=== PATIENT | male | born 1970 | race Caucasian/White ===

== ENCOUNTER 2017-11-06 10:28 | Day surgery (SDC) | payer BC ==
[2017-11-04 08:47] VITALS: BMI 31.0
--- NOTE | 2017-11-05 08:19 | History and Physical ---
History & Physical Date Nov 05, 2017. Chief Complaint Patient presents a 46-year-old white male with bilateral knee pain examination and MRI consistent for medial meniscus bilateral knees Spenard also conservative therapy presents today for a fluoroscopic evaluation History of Present Illness The patient is a 46 year old male with complaints of bilateral painful knees nonresponse to conservative therapy with bilateral meniscal tears via MRI Additional History Hepatic Disease: No Endocrine Disorder: No Kidney Disease: No Hypertension: No Heart Disease: No Bleeding Tendencies: Other: Patient has history of platelet storage pool disorder his family doctor is Dr. David Odell patient also has history of rays disease Allergies Coded Allergies: No Known Allergies (Unverified , 11/04/17) Home Medications Scheduled Cholecalciferol (Vitamin D3), 1 TAB PO DAILY Multivitamin (Multivitamin), 1 TAB PO DAILY Scheduled PRN Loratadine (Claritin), 10 MG PO DAILY PRN for PRN Ranitidine (Zantac), 150 MG PO BID PRN for Indigestion Physical Examination Skin: warm/dry, no rash Eyes: normal inspection, EOMI, sclerae normal ENT: normal ENT inspection, pharynx normal Head: normocephalic, atraumatic Neck: supple, no adenopathy, trachea midline Respiratory/Chest: lungs clear, normal breath sounds, no respiratory distress Cardiovascular: regular rate, rhythm, no edema, no murmur Abdomen / GI: normal bowel sounds, non tender Back: normal inspection Extremities: + pertinent finding (patient with history of bilateral knee pain medial joint line findings consistent with torn medial meniscus verified via MRI ) Neurologic/Psych: no motor/sensory deficits, alert, normal reflexes, oriented x 3 Diagnosis Patient presents with history of bilateral knee pain in the joint line pain tenderness exam suggestive of a torn medial meniscus bilaterally patient presents for bilateral knee arthroscopy Plan of Treatment Plans for bilateral knee arthroscopy postoperative pain management DVT prophylaxis antibiotics physical therapy is necessary
[~2017-11-06] VITALS: Ht 165.1 cm; Wt 92.0 kg
--- NOTE | 2017-11-06 10:01 | History & Physical Bridge Note ---
H&P Re-Evaluation Bridge Note: I have examined the patient, reviewed the History & Physical and in the interval since the performance of the History & Physical I have noted the following changes of clinical significance: No changes noted
[~2017-11-06 10:28] MED LIST: CEFAZOLIN 2000MG IV PUSH 15 ML IV SCH; CHOL1000 PO; CLR10 PO; LACTATED RINGER'S 1000ML 1,000 ML IV SCH; MULT-506 PO; PATIENT'S ALLERGY INFO NEEDS ENTERED SCH; RANI150T85 PO; [UNRECOGNIZED DRUG - REMARK] SCH
[2017-11-06] MEDS ORDERED: ONDANSETRON INJ 2 MG/ML 2 ML VIAL IV PRN ×2 (10:30→12:45)
[2017-11-06] MEDS ORDERED: FENTANYL CITRATE INJ 50 MCG/1 ML 2 ML VIAL IV PRN (10:30)
[2017-11-06] MEDS ORDERED: ATROPINE SULFATE 0.1 MG/ML 5ML SYR IV PRN (10:30)
[2017-11-06] MEDS ORDERED: EpHEDrine SULFATE INJ 50 MG/ML AMP IV PRN (10:30)
[2017-11-06] MEDS ORDERED: DEXAMETHASONE SOD INJ 4 MG/ML VIAL ONE (10:33)
[2017-11-06] MEDS ORDERED: PROPOFOL IV EMULSION 10 MG/ML 20 ML VIAL IV ONE (10:33)
[2017-11-06] MEDS ORDERED: MIDAZOLAM HCL 1 MG/ML 2ML VIAL ONE (10:33)
[2017-11-06] MEDS ORDERED: ONDANSETRON INJ 2 MG/ML 2 ML VIAL ONE (10:33)
[2017-11-06] MEDS ORDERED: LIDOCAINE HCL 2% 2 ML VIAL (20MG/ML) ONE (10:33)
[2017-11-06] MEDS ORDERED: FENTANYL CITRATE INJ 50 MCG/1 ML 2 ML VIAL ONE ×3 (10:33→12:54)
[2017-11-06 10:50] VITALS: BP 122/79; PULSE 51; TEMP 36.6; O2SAT 99; Ht 165.1 cm; Wt 92.0 kg
[2017-11-06] MEDS ORDERED: NURSING VERBAL MED ORDER ONE (11:00)
[2017-11-06] MEDS ORDERED: SODIUM CHLORIDE 0.9% IV SCH (11:15)
[2017-11-06] MEDS ORDERED: DESMOPRESSIN ACETATE IV SCH (11:15)
[2017-11-06] MEDS ORDERED: BUPIVACAINE/EPINEPHRINE 0.5% MPF 1:200,000 30 ML VIAL ONE (11:28)
[2017-11-06] MEDS ORDERED: SCOPOLAMINE 1.5 MG TDSY TD ONE (11:40)
[2017-11-06] MEDS ORDERED: SODIUM CHLORIDE 0.9% 1000ML 1,000 ML IV SCH (12:34)
--- NOTE | 2017-11-06 12:36 | Discharge Instructions ---
Discharge Instructions Date of Service Nov 06, 2017. Visit Reason for Visit: Bilateral Knee Medial Meniscus Tears Discharge Discharge Diagnosis / Problem: bilateral knee meniscal tears Discharge Goals Goal(s): Decrease discomfort, Improve function, Increase independence Activity Recommendations Activity Limitations: as noted below Weightbearing Status: Left weightbearing (as tolerated), Right weightbearing ( as tolerated) Anesthesia . Post Anesthesia Instructions: If you have had General Anesthesia or IV Sedation: * Do not drive today. * Resume driving when surgeon permits. * Do not make important decisions or sign legal documents today. * Call surgeon for: 1. Temperature elevations greater than 101 degrees F. 2. Uncontrollable pain. 3. Excessive bleeding. 4. Persistent nausea and vomiting. 5. Medication intolerance (nausea, vomiting or rash). * For nausea and vomiting use only clear liquids such as: tea, soda, bouillon until nausea subsides, then gradually increase diet as tolerated. * If you have any concerns or questions, call your surgeon's office. If physician is unavailable and it is an emergency, call 911 or go to the nearest emergency room. . Instructions / Follow-Up Instructions / Follow-Up ACTIVITY RECOMMENDATIONS: * You may walk on the leg with or without crutches as comfort permits. * Bending of the knee should start at once. * Do not shower for 48 hours following surgery. SPECIAL CARE INSTRUCTIONS: * You may cleanse the skin adjacent to the small wounds with soap and water at the time of the first dressing change. * The application of an ice bag to the front and sides of the knee will decrease swelling and discomfort for the first 48 hours. * The small incisions may be sore and develop bruising. This bruising does not require any special care. SPECIAL PRECAUTIONS: * If you experience unusual pain unrelieved by prescriptions, temperature elevation (100 degrees F. or above) or progressive swelling or bleeding, you should contact our office at for further evaluation. * You may have been prescribed pain medication. If you experience nausea and/or fine skin rash, discontinue this medication and contact our office at for an alternate medication. DRESSING: * Dressing should be comfortable and absorb any leakage of fluid and/or blood. * The dressing may become moist or bloodstained. * Dressing may be removed _24 hours_ after surgery and bandaids placed over the small surgical incisions. If can be removed sooner if it becomes very soiled or loose. * Bandaids may be used over next several days as needed and can be discontinued when there is not further drainage from the wounds. FOLLOW UP VISIT: If appointment is not already scheduled: Please call [facility] to make a follow-up appointment for your surgery at . Diet Recommendations Recommended Home Diet: no limitations Pending Studies Studies pending at discharge: no Medical Emergencies . Who to Call and When: Medical Emergencies: If at any time you feel your situation is an emergency, please call 911 immediately. . Non-Emergent Contact Non-Emergency issues call your: Primary Care Provider, Surgeon . . "Provider Documentation" section prepared by Sixto Hernández. . [place] Drug Monitoring Program Search Results: patient reviewed within database, no issues identified
[2017-11-06] MEDS ORDERED: HYDR-5688 PO (12:37)
[2017-11-06] MEDS ORDERED: HYDROCODONE/ACETAMIN 5/325MG TAB PO PRN ×2 (12:45)
[2017-11-06] MEDS ORDERED: GLYCOPYRROLATE INJ 0.2 MG/ML VIAL ONE (12:46)
--- NOTE | 2017-11-06 13:10 | [facility] Post Operative Brief Note ---
Immediate Operative Summary Operative Date Nov 06, 2017. Pre-Operative Diagnosis Torn medial meniscus Rt Knee Torn Medial meniscus left knee Post-Operative Diagnosis Same With Gr 3 MED Femoral condyle and Patellofemoral Bilateral Procedure(s) Performed BL Partial medial menisectomy bilateral chondroplasty medial condyle and patello femoral Surgeon Anthony [employer] Teacher Surgeon(s) none Estimated Blood Loss 5cc rt 5 cc left Findings Consistent with Post-Op Diagnosis Specimens no0ne Drains None Anesthesia Type General Complication(s) none Disposition Disposition: Recovery Room / PACU
--- NOTE | 2017-11-06 13:13 | [facility] Operative Report ---
Operative Report Operative Date Nov 06, 2017. Pre-Operative Diagnosis Torn medial meniscus Rt Knee Torn Medial meniscus left knee Post-Operative Diagnosis Same With Gr 3 MED Femoral condyle and Patellofemoral Bilateral Procedure(s) Performed BL Partial medial menisectomy bilateral chondroplasty medial condyle and patello femoral Surgeon Anthony [employer] Dispatcher Surgeon(s) none Estimated Blood Loss 5cc rt 5 cc left Findings Patient presents with poor medial meniscus bilateral knees plans surgery also findings of medial femoral condyle grade 3 chondral changes globally involving the medial femoral condyle the right knee in the left knee as well as patellofemoral joint of the right knee and the left knee were noted Specimens no0ne Drains None Anesthesia Type General Complication(s) none Disposition Recovery Room / PACU Indications Patient is failed attempts at conservative management including physical therapy bracing relative rest activity modification presents for knee arthroscopy with the above findings noted torn medial meniscus re-3 medial femoral condyle grade 3 patellofemoral joint bilaterally Description of Procedure After proper prepping and draping bilateral lower extremities the right knee arthroscopies performed first with medial lateral parapatellar portal was created. Examination medial compartment reveals a tear of the posterior horn medial meniscus of the partial posterior horn medial meniscectomy performed the complexity the medial femoral condyle for global grade 3 changes performed anterior posterior cruciate ligament visualized and probed and intact lateral compartment was otherwise unremarkable no meniscal tear was noted no chondral defects or deficiencies were noted patellofemoral joint had grade 3 changes involving both patella medial lateral facet and trochlear chondroplasty performed back to stable margin operative manner debris is removed to portals closed with 4-0 nylon in injection of 15 mL 4% with epinephrine Marcaine was placed as well as left knee underwent arthroscopy medial lateral parapatellar portals were created arthroscopic examination of the cervical posterior the posterior horn medial meniscus socially partial posterior horn medial meniscectomy performed arthroplasty for diffuse grade 3 chondral changes involving medial femoral condyle performed back to stable margin anterior posterior cruciate ligament were visualized and probed and intact lateral compartment was otherwise pristine patellofemoral compartment had diffuse grade 3 chondral changes Busick autoplasty patellofemoral joint performed back to stable margin. Manner debris was removed Skipworth closed with 4-0 nylon injection of 15 mL of quarter percent Marcaine with epinephrine was placed patient usual taken from stable condition. I attest to the content of the Intraoperative Record and any orders documented therein. Any exceptions are noted below.
--- NOTE | 2017-11-06 13:33 | Anesthesiology Progress Note ---
Anesthesia Post Op Note Date & Time Nov 06, 2017 at 13:33 Vital Signs Pain Intensity: 2 Vital Signs Past 12 Hours Date Time Temp Pulse Resp B/P (MAP) Pulse Ox O2 Delivery O2 Flow Rate FiO2 11/06/17 13:16 36.1 68 16 115/77 100 Oxymask 10 11/06/17 10:50 36.6 51 16 122/79 (93) 99 Room Air Notes Mental Status: alert / awake / arousable, participated in evaluation Pt Amnestic to Procedure: Yes Nausea / Vomiting: adequately controlled Pain: adequately controlled Airway Patency, RR, SpO2: stable & adequate BP & HR: stable & adequate Hydration State: stable & adequate Anesthetic Complications: no major complications apparent
[2017-11-06 14:00] VITALS: BP 119/60; PULSE 86; TEMP 36.3; O2SAT 94
[2017-11-06 14:30] VITALS: BP 100/65; PULSE 76; TEMP 36.3; O2SAT 95
== END 2017-11-06 14:40 | disposition home or self-care (01) ==
LOC: C.ACU 10:28
PROVIDERS: ATTEND Orthopaedic Surgery
DX: S83.242A Other tear of medial meniscus, current injury, left knee, initial encounter (principal); S83.241A Other tear of medial meniscus, current injury, right knee, initial encounter; E05.90 Thyrotoxicosis, unspecified without thyrotoxic crisis or storm; K21.9 Gastro-esophageal reflux disease without esophagitis; X58.XXXA Exposure to other specified factors, initial encounter